=== PATIENT | male | born 1985 | race Caucasian/White ===

== ENCOUNTER 2018-10-25 07:01 | Day surgery (SDC) | payer BC ==
[2018-10-25] MEDS ORDERED: PROPOFOL 60 ML (07:09)
[2018-10-25] MEDS ORDERED: LIDOCAINE 100 MG SYRINGE (07:09)
[2018-10-25] MEDS ORDERED: FENTAnyl 50 MCG/ML VIAL (07:20)
[2018-10-25] MEDS ORDERED: MIDAZOLAM 1 MG/ML 2 ML INJ (07:27)
[2018-10-25] MEDS ORDERED: ETOMIDATE 20 MG INJ (07:31)
== END 2018-10-25 11:51 | disposition home or self-care (01) ==
LOC: GIL 07:01
DX: K21.0 Gastro-esophageal reflux disease with esophagitis (principal); K44.9 Diaphragmatic hernia without obstruction or gangrene; K29.70 Gastritis, unspecified, without bleeding; D12.5 Benign neoplasm of sigmoid colon; K64.8 Other hemorrhoids; K62.5 Hemorrhage of anus and rectum; I45.6 Pre-excitation syndrome; Z87.891 Personal history of nicotine dependence; Z80.0 Family history of malignant neoplasm of digestive organs
CPT/HCPCS: 43239; 88305; 88312